=== PATIENT | female | born 1975 | race Caucasian/White ===

== ENCOUNTER → 2016-08-25 | Outpatient (CLI) | payer BC | LOC: MW.CHFP 13:50 | PROVIDERS: ATTEND Nurse Practitioner Family | DX: F32.9 Major depressive disorder, single episode, unspecified (principal) | CPT/HCPCS: 36415; 84443 ==

== ENCOUNTER 2017-08-06 10:16 | Day surgery (SDC) | payer BC ==
[~2017-08-06 10:16] MED LIST: Acetaminophen/HYDROcodone 325-5 MG Tab PO PRN; Lactated Ringers 1,000 ML IV SCH; Lidocaine 1% 20 ML MDV ONE; ceFAZolin 2 GM in Premix Bag 1 BAG IV SCH
[2017-08-06] MEDS ORDERED: Lidocaine 2% 5 ML SDV ONE (10:37)
[2017-08-06] MEDS ORDERED: Ondansetron 4 MG/2 ML SDV ONE (10:37)
[2017-08-06] MEDS ORDERED: Midazolam 1 MG/ML 2 ML SDV ONE (10:38)
[2017-08-06] MEDS ORDERED: fentaNYL 250 MCG/5 ML SDV ONE (10:38)
[2017-08-06] MEDS ORDERED: Propofol 200 MG/20 ML SDV ONE (10:38)
--- NOTE | 2017-08-06 10:57 | PCM.PREANE ---
Preanesthetic Assessment - Anesthesia/Transfusion/Family Hx Anesthesia History: Prior Anesthesia Without Reaction (for EGD) Family History of Anesthesia Reaction: No Transfusion History: No Prior Transfusion(s) - Review of Systems General: No Symptoms Pulmonary: No Symptoms Cardiovascular: No Symptoms Gastrointestinal: No Symptoms Neurological: No Symptoms Other: Reports: None - Physical Assessment NPO Status Date: 08/05/17 O2 Sat by Pulse Oximetry: 96 Respiratory Rate: 16 Vital Signs: Last Vital Signs Temp 36.1 C 08/06/17 10:35 Pulse 66 08/06/17 10:35 Resp 16 08/06/17 10:35 BP 135/68 08/06/17 10:35 Pulse Ox 96 08/06/17 10:35 Height: 1.73 m Weight: 75.75 kg ASA Class: 2 Mental Status: Alert & Oriented x3 Airway Class: Mallampati = 1 Dentition: Reports: Normal Dentition ROM/Head Extension: Full Lungs: Clear to Auscultation, Normal Respiratory Effort Cardiovascular: Regular Rate, Regular Rhythm - Allergies Allergies/Adverse Reactions: Allergies Allergy/AdvReac Type Severity Reaction Status Date / Time No Known Allergies Allergy Verified 08/02/17 08:11 - Anesthesia Plan Pre-Op Medication Ordered: None (pmh: smoker, gerd. anx/dep) - Acknowledgements Anesthesia Type Planned: General Anesthesia Pt an Appropriate Candidate for the Planned Anesthesia: Yes Alternatives and Risks of Anesthesia Discussed w Pt/Guardian: Yes Pt/Guardian Understands and Agrees with Anesthesia Plan: Yes PreAnesthesia Questionnaire Gastrointestinal History: Reports: GERD, Irritable Bowel Syndrome Genitourinary History: Reports: None Musculoskeletal History: Reports: Osteoarthritis Psychiatric History: Reports: Anxiety, Depression - Past Surgical History Head Surgeries/Procedures: Reports: None Female Surgical History: Reports: Tubal Ligation - SUBSTANCE USE Smoking Status *Q: Current Every Day Smoker Tobacco Use Within Last Twelve Months: Cigarettes Days Per Week of Alcohol Use: 7 Number of Drinks Per Day: 3 Total Drinks Per Week: 21 Recreational Drug Use History: No - HOME MEDS Home Medications: Home Meds Desvenlafaxine Succinate [Desvenlafaxine Succinate ER] 25 mg PO DAILY 08/02/17 [ History] Omeprazole 20 mg PO DAILY PRN 08/02/17 [History] Sucralfate 1 tab PO ASDIRECTED PRN 08/02/17 [History] - CURRENT (IN HOUSE) MEDS Current Meds: Current Medications Hydrocodone Bitart/Acetaminophen ([place] 325-5 Mg) 1 - 2 tab PO Q4H PRN PRN Reason: Pain Cefazolin Sodium/Dextrose 2 gm (/ Premix) 50 mls @ 100 mls/hr IV ONCALL SIMON Lactated Ringer's (Ringers, Lactated) 1,000 mls @ 100 mls/hr IV ASDIRECTED SIMON Last Admin: 08/06/17 10:42 Dose: 100 mls/hr Discontinued Medications Fentanyl (Sublimaze) Confirm Administered Dose 250 mcg .ROUTE .STK-MED ONE Stop: 08/06/17 10:39 Lidocaine (Xylocaine-Mpf 2%) Confirm Administered Dose 5 ml .ROUTE .STK-MED ONE Stop: 08/06/17 10:38 Lidocaine HCl (Xylocaine 1%) Confirm Administered Dose 20 ml .ROUTE .STK-MED ONE Stop: 08/06/17 07:31 Midazolam HCl (Versed 1 Mg/Ml) Confirm Administered Dose 2 mg .ROUTE .STK-MED ONE Stop: 08/06/17 10:39 Ondansetron HCl (Zofran) Confirm Administered Dose 4 mg .ROUTE .STK-MED ONE Stop: 08/06/17 10:38 Propofol (Diprivan 20 Ml) Confirm Administered Dose 200 mg .ROUTE .STK-MED ONE Stop: 08/06/17 10:39
[2017-08-06] MEDS ORDERED: Sodium Chloride 0.9% 20 ML ONE (12:25)
[2017-08-06] MEDS ORDERED: ceFAZolin 1 GM Vial ONE (12:25)
[2017-08-06] MEDS ORDERED: fentaNYL 100 MCG/2 ML SDV IVPUSH PRN (12:35)
[2017-08-06] MEDS ORDERED: Glycopyrrolate 0.2 MG/ML SDV ONE (12:36)
[2017-08-06] MEDS ORDERED: ePHEDrine 50 MG/ML SDV ONE (12:38)
[2017-08-06] MEDS ORDERED: Ketorolac 30 MG/ML SDV ONE (12:55)
--- NOTE | 2017-08-06 13:16 | PCM.OPNOTE ---
- General Post-Op/Procedure Note Date of Surgery/Procedure: 08/06/17 Operative Procedure(s): Left knee scope with PLM Post-Op Diagnosis: L knee DJD and L knee lateral meniscus tear Anesthesia Technique: General LMA Primary Surgeon: Bridget Mayo Contour Sander: Kelley Rivers in mLs: 5 Condition: Good Free Text/Narrative:: tt=18 min #[id number]
--- NOTE | 2017-08-06 13:20 | PCM.OPNOTE ---
- General Post-Op/Procedure Note Date of Surgery/Procedure: 08/06/17 Operative Procedure(s): left knee arthroscopy with PLM Post-Op Diagnosis: DJD left lat meniscus tear, DJD left knee Primary Surgeon: Bridget Mayo Shot Lighter: Kelley Rivers in mLs: 10 Condition: Good Free Text/Narrative:: 284
--- NOTE | 2017-08-06 13:53 | PCM48HPAN ---
Post Anesthesia Note - EVALUATION WITHIN 48HRS OF ANESTHETIC Vital Signs in Normal Range: Yes Patient Participated in Evaluation: Yes Respiratory Function Stable: Yes Airway Patent: Yes Cardiovascular Function Stable: Yes Hydration Status Stable: Yes Pain Control Satisfactory: Yes Nausea and Vomiting Control Satisfactory: Yes Mental Status Recovered: Yes Resp Rate: 13
--- NOTE | 2017-08-06 13:53 | PCM.POSTAN ---
POST ANESTHESIA ASSESSMENT - MENTAL STATUS Mental Status: Alert, Oriented - RESPIRATORY Respiratory Status: Respiratory Rate WNL, Airway Patent, O2 Saturation Stable - CARDIOVASCULAR CV Status: Pulse Rate WNL, Blood Pressure Stable - GASTROINTESTINAL GI Status: No Symptoms - POST OP HYDRATION Hydration Status: Adequate & Stable
--- NOTE | 2017-08-06 13:54 | OR ---
SURGEON: Bridget Mayo MD DATE OF PROCEDURE: 08/06/2017 PREOPERATIVE DIAGNOSIS: Left knee lateral meniscus tear. POSTOPERATIVE DIAGNOSES: 1. Left knee lateral meniscus tear. 2. Degenerative joint disease, left knee. PROCEDURE: Left knee arthroscopy with partial lateral meniscectomy. WIRE PULLER: Kelley Rivers PA-C. ANESTHESIA: General. ESTIMATED BLOOD LOSS: 10 mL. TOURNIQUET TIME: 18 minutes. COMPLICATIONS: None. DVT PROPHYLAXIS: None. IMPLANTS USED: None. BRIEF HISTORY: Nancy is a 41-year-old female, who has had complaint of persistent left knee pain. She did have an MRI, which did show a tear of the left lateral meniscus. Due to her lack of response to conservative treatment, I did recommend surgical intervention. The risks and goals of procedure were discussed with the patient and were documented preoperatively. She agreed to proceed. DESCRIPTION OF PROCEDURE: The patient was properly identified and brought to the operating room. She was transferred from the OR cart and placed on the operating table in supine position. General anesthesia was administered. After adequate anesthesia was obtained, a well-padded tourniquet was applied to the left lower extremity. Left lower extremity was then prepped in standard fashion using ChloraPrep solution. It was then sterilely draped. A time-out was performed to ensure correct site and procedure. Preoperative antibiotics were given. The surgical site had been marked preoperatively. An Esmarch was used to exsanguinate the left lower extremity and the tourniquet was inflated to 250 mmHg. A lateral portal arthrotomy was established. Blunt trocar and cannula were introduced into the suprapatellar pouch. Camera, inflow, and outflow were assembled. No significant synovitis was noted. The patellofemoral joint was visualized. Degenerative changes were noted along the undersurface of the patella. The patella appeared to track centrally. I then extended down the lateral and medial gutter. No loose bodies were identified. I then entered the medial compartment. A medial portal arthrotomy was established. A blunt probe was inserted. The meniscus appeared intact. 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 I then entered the notch. Both the ACL and PCL were visualized and probed and found to be stable. I then entered the lateral compartment. Extensive degenerative tearing of the posterior horn of the lateral meniscus was noted. This was probed and found to be unstable. Using a combination of biters and shaver, this was resected back to a stable remnant. It was again probed and found to be stable. The joint surfaces were then inspected. No obvious degenerative changes were noted along the lateral femoral condyle; however, probing did show extensive softening along the weightbearing portion of the femoral condyle as well as the posterior portion. The lateral tibial plateau showed diffuse grade 3 to grade 4 chondromalacia. I did perform a chondroplasty of the lateral tibial plateau. I then entered the patellofemoral joint again. The undersurface of the patella was inspected. Grade 3 to grade 4 chondromalacia was noted diffusely along the medial and lateral aspect of the patella. A chondroplasty was performed to resect the unstable fragments. The trochlea showed minimal degenerative findings. Instruments were then removed from the knee. The portal sites were closed with 3-0 nylon. 1% Lidocaine was injected along the portal tracts. Xeroform gauze was placed over the wound and a bulky dressing was applied. The tourniquet was then deflated. She was awakened from her anesthetic and transferred back to the operating room cart. She was brought to recovery room in stable condition. All needle and sponge counts were correct. DIA / RHONA /[id number]
[2017-08-06 14:29] VITALS: BP 128/79
== END 2017-08-06 14:13 | disposition home or self-care (01) ==
LOC: MW.SDS 10:16
PROVIDERS: ATTEND Orthopaedic Surgery
DX: M23.252 Derangement of posterior horn of lateral meniscus due to old tear or injury, left knee (principal); F41.9 Anxiety disorder, unspecified; F32.9 Major depressive disorder, single episode, unspecified; K21.9 Gastro-esophageal reflux disease without esophagitis; Z79.899 Other long term (current) drug therapy; F17.210 Nicotine dependence, cigarettes, uncomplicated
CPT/HCPCS: 29881; 81025; A9270; J0690; J1885; J2250; J2405; J3010; J7120; J2704

== ENCOUNTER 2019-05-01 02:58 | Emergency (ER) | payer BC ==
--- NOTE | 2019-05-01 03:17 | EDM.PDOC ---
ED HPI GENERAL MEDICAL PROBLEM - General Chief Complaint: Fever Stated Complaint: FEVER Time Seen by Provider: 05/01/19 03:08 Source of Information: Reports: Patient History Limitations: Reports: No Limitations - History of Present Illness INITIAL COMMENTS - FREE TEXT/NARRATIVE: This 43-year-old female presents the ER with a fever muscle aches for the past 3 days. Patient states that her family members have all been sick. Patient denies any other problems Onset: Today Duration: Day(s):, Getting Worse Location: Reports: Abdomen Severity: Mild Improves with: Reports: None Worsens with: Reports: None Associated Symptoms: Reports: No Other Symptoms, Fever/Chills - Related Data Allergies Allergy/AdvReac Type Severity Reaction Status Date / Time No Known Allergies Allergy Verified 05/01/19 03:12 Home Meds: Home Meds Penicillin V Potassium 1 tab PO Q6HR 05/01/19 [History] Past Medical History Gastrointestinal History: Reports: GERD, Irritable Bowel Syndrome Genitourinary History: Reports: None Musculoskeletal History: Reports: Osteoarthritis Psychiatric History: Reports: Anxiety, Depression - Past Surgical History Head Surgeries/Procedures: Reports: None Female Surgical History: Reports: Tubal Ligation ED ROS GENERAL - Review of Systems Review Of Systems: Comprehensive ROS is negative, except as noted in HPI. Constitutional: Reports: No Symptoms, Fever, Chills, Malaise, Weakness HEENT: Reports: No Symptoms Respiratory: Reports: No Symptoms Cardiovascular: Reports: No Symptoms Endocrine: Reports: No Symptoms GI/Abdominal: Reports: No Symptoms : Reports: No Symptoms Musculoskeletal: Reports: No Symptoms Skin: Reports: No Symptoms Neurological: Reports: No Symptoms Psychiatric: Reports: No Symptoms Hematologic/Lymphatic: Reports: No Symptoms Immunologic: Reports: No Symptoms ED EXAM, SEPSIS - Physical Exam Exam: See Below Exam Limited By: No Limitations General Appearance: Alert, WD/WN, No Apparent Distress Eye Exam: Bilateral Eye: Abnormal EOM, Abnormal Pupil, Normal Fundi, Normal Inspection Ears: Normal External Exam, Normal Canal Nose: Normal Inspection, Normal Mucosa Throat/Mouth: Normal Inspection, Normal Lips, Normal Oropharynx, Normal Voice Head: Atraumatic, Normocephalic Neck: Normal Inspection, Supple, Non-Tender Respiratory/Chest: No Respiratory Distress, Lungs Clear, Normal Breath Sounds, No Accessory Muscle Use Cardiovascular: Normal Peripheral Pulses, No JVD, No Murmur GI/Abdominal Exam: Normal Bowel Sounds, Soft, Non-Tender, No Organomegaly, No Distention Back: Normal Inspection, Full Range of Motion Neurological: Oriented, Normal Reflexes, No Motor/Sensory Deficits Psychiatric: Normal Affect, Normal Mood Skin: Warm, Intact Course - Vital Signs Last Recorded V/S: Last Vital Signs Temp 100.2 F 05/01/19 03:10 Pulse 116 H 05/01/19 03:10 Resp 18 05/01/19 03:10 BP 95/71 05/01/19 03:10 Pulse Ox 96 05/01/19 03:10 - Orders/Labs/Meds Orders: Active Orders 24 hr Category Date Time Status STREP SCRN A RAPID W CULT CONF [RM] Stat Lab 05/01/19 03:45 Ordered Departure - Departure Time of Disposition: 04:17 Disposition: Home, Self-Care 01 Condition: Good Clinical Impression: Bronchitis - Discharge Information Referrals: PCP,Not In Area [Primary Care Provider] - Forms: ED Department Discharge Sepsis Event Note - Focused Exam Vital Signs: Vital Signs Temp Pulse Resp BP Pulse Ox 05/01/19 03:10 100.2 F 116 H 18 95/71 96 - My Orders Last 24 Hours: My Active Orders 05/01/19 03:45 STREP SCRN A RAPID W CULT CONF [RM] Stat - Assessment/Plan Last 24 Hours: My Active Orders 05/01/19 03:45 STREP SCRN A RAPID W CULT CONF [RM] Stat
[2019-05-01] MEDS ORDERED: Azithromycin 250 MG Tab PO ONE (04:18)
[2019-05-01 04:30] VITALS: BP 90/52; PULSE 96
== END 2019-05-01 04:30 | disposition home or self-care (01) ==
LOC: MW.ED 02:58
DX: J40 Bronchitis, not specified as acute or chronic (principal)
CPT/HCPCS: 87081; 87804; 87880; 99283; A9270; 99282

== ENCOUNTER 2020-01-09 11:45 | Day surgery (SDC) | payer BC ==
--- NOTE | 2020-01-09 12:25 | PCM.PREANE ---
Preanesthetic Assessment - Anesthesia/Transfusion/Family Hx Anesthesia History: Prior Anesthesia Without Reaction (for EGD) Other Type of Anesthesia Reaction Comment: "I get the shakes after surgery" Family History of Anesthesia Reaction: No Transfusion History: No Prior Transfusion(s) Intubation History: Unknown - Review of Systems General: No Symptoms Pulmonary: No Symptoms Cardiovascular: No Symptoms Gastrointestinal: No Symptoms Neurological: No Symptoms Other: Reports: None - Physical Assessment Height: 5 ft 7.75 in Weight: 76.204 kg ASA Class: 2 Mental Status: Alert & Oriented x3 Airway Class: Mallampati = 2 Dentition: Reports: Normal Dentition Thyro-Mental Finger Breadths: 3 Mouth Opening Finger Breadths: 2 (small mouth) ROM/Head Extension: Full Lungs: Clear to Auscultation, Normal Respiratory Effort Cardiovascular: Regular Rate, Regular Rhythm - Allergies Allergies/Adverse Reactions: Allergies Allergy/AdvReac Type Severity Reaction Status Date / Time No Known Allergies Allergy Verified 01/06/20 11:02 - Blood Blood Available: No - Anesthesia Plan Pre-Op Medication Ordered: None - Acknowledgements Anesthesia Type Planned: General Anesthesia Pt an Appropriate Candidate for the Planned Anesthesia: Yes Alternatives and Risks of Anesthesia Discussed w Pt/Guardian: Yes Pt/Guardian Understands and Agrees with Anesthesia Plan: Yes PreAnesthesia Questionnaire HEENT History: Reports: None Cardiovascular History: Reports: None Respiratory History: Reports: None Gastrointestinal History: Reports: GERD (controlled with omeprazole) Genitourinary History: Reports: None PLATE CONDITIONER History: Reports: None Musculoskeletal History: Reports: Arthritis, Osteoarthritis Neurological History: Reports: None Psychiatric History: Reports: Anxiety, Depression Endocrine/Metabolic History: Reports: None Hematologic History: Reports: None Immunologic History: Reports: None Oncologic (Cancer) History: Reports: None Dermatologic History: Reports: None - Infectious Disease History Infectious Disease History: Reports: None - Past Surgical History Head Surgeries/Procedures: Reports: None HEENT Surgical History: Reports: None Cardiovascular Surgical History: Reports: None Respiratory Surgical History: Reports: None GI Surgical History: Reports: None Female Surgical History: Reports: Tubal Ligation (1997) Endocrine Surgical History: Reports: None Neurological Surgical History: Reports: None Musculoskeletal Surgical History: Reports: Arthroscopic Knee (left knee 2016) Oncologic Surgical History: Reports: None Dermatological Surgical History: Reports: None - SUBSTANCE USE Smoking Status *Q: Current Every Day Smoker (1/2 ppd) Tobacco Use Within Last Twelve Months: Cigarettes Days Per Week of Alcohol Use: 7 Number of Drinks Per Day: 2 Total Drinks Per Week: 14 - HOME MEDS Home Medications: Home Meds Omeprazole 20 mg PO DAILY PRN 01/06/20 [History]
[2020-01-09] MEDS ORDERED: Lactated Ringers 1,000 ML IV SCH (12:30)
[2020-01-09] MEDS ORDERED: Propofol 200 MG/20 ML SDV ONE (12:58)
[2020-01-09] MEDS ORDERED: Lidocaine 2% 5 ML SDV ONE (12:58)
[2020-01-09] MEDS ORDERED: Midazolam 1 MG/ML 2 ML SDV ONE (12:59)
[2020-01-09] MEDS ORDERED: fentaNYL 100 MCG/2 ML SDV ONE (12:59)
[2020-01-09] MEDS ORDERED: HYDROmorphone 2 MG/ML Syringe ONE (12:59)
[2020-01-09] MEDS ORDERED: Sodium Chloride 0.9% 20 ML ONE (13:01)
[2020-01-09] MEDS ORDERED: Ondansetron 4 MG/2 ML SDV ONE (13:03)
[2020-01-09] MEDS ORDERED: Ketorolac 30 MG/ML SDV ONE (13:03)
--- NOTE | 2020-01-09 14:29 | PCM.OPNOTE ---
<Jannette Landeros - Last Filed: 01/09/20 14:24> - General Post-Op/Procedure Note Date of Surgery/Procedure: 01/09/20 Operative Procedure(s): operative hysteroscopy with polypectomy, dilation & currettage, Mirena IUD insertion Findings: -endometrial polyp Pre Op Diagnosis: Abnormal uterine bleeding, suspected endometrial polyp Post-Op Diagnosis: same Anesthesia Technique: General LMA Primary Surgeon: Lucía Castro Anesthesia Provider: Lotus Mueller Surveyor Oil Well Directional: Jannette Landeros (MS4) Pathology: -endometrial curettings with possible polyp -endocervical curettings Fluid Replacement, Intraop: 800 Output, Urine Amount: 50 (straight catheter) EBL in mLs: 5 Complications: none known Condition: Good Free Text/Narrative:: -44yo female underwent operative hysteroscopy with polypectomy, D&C, and Mirena insertion -fluid deficit 105 -patient tolerated procedure well <Lucía Castro - Last Filed: 01/09/20 14:38> - General Post-Op/Procedure Note Operative Procedure(s): Operative Hysteroscopy with removal of endometrial lesion via myosure. Endometrial currettage. Insertion of Mirena IUD Free Text/Narrative:: Intake & Output 01/08/20 01/09/20 01/09/20 22:59 06:59 14:59 Intake Total 800 Output Total 50 Balance 750 Examination under anaesthesia shows 10 week sized globular uterus . Uterus sounded to 10cm
[2020-01-09] MEDS ORDERED: Promethazine 25 MG/ML SDV IM PRN (14:40)
[2020-01-09] MEDS ORDERED: Acetaminophen/oxyCODONE 325-5 MG Tab PO PRN ×2 (14:40)
[2020-01-09] MEDS ORDERED: Ondansetron 4 MG/2 ML SDV IVPUSH PRN (14:40)
[2020-01-09] MEDS ORDERED: Morphine 4 MG/ML Syringe IVPUSH PRN (14:40)
[2020-01-09] MEDS ORDERED: Ketorolac 30 MG/ML SDV IVPUSH ONE (14:40)
--- NOTE | 2020-01-09 14:53 | PCM.POSTAN ---
POST ANESTHESIA ASSESSMENT - MENTAL STATUS Mental Status: Alert, Oriented - VITAL SIGNS Vital Signs: Last Vital Signs Temp 36.9 C 01/09/20 14:20 Pulse 62 01/09/20 14:45 Resp 11 L 01/09/20 14:45 BP 136/84 01/09/20 14:45 Pulse Ox 93 L 01/09/20 14:45 - RESPIRATORY Respiratory Status: Respiratory Rate WNL, Airway Patent, O2 Saturation Stable - CARDIOVASCULAR CV Status: Pulse Rate WNL, Blood Pressure Stable - GASTROINTESTINAL GI Status: No Symptoms - PAIN Pain Score: 1 - POST OP HYDRATION Hydration Status: Adequate & Stable - OBSERVATIONS Free Text/Narrative:: Sitting up conversing in bed, reports good pain control, taking PO well and denies nausea.
[2020-01-09 16:33] VITALS: BP 122/86; PULSE 66
--- NOTE | 2020-01-09 16:43 | PCM48HPAN ---
Post Anesthesia Note - EVALUATION WITHIN 48HRS OF ANESTHETIC Vital Signs in Normal Range: Yes Patient Participated in Evaluation: Yes Respiratory Function Stable: Yes Airway Patent: Yes Cardiovascular Function Stable: Yes Hydration Status Stable: Yes Pain Control Satisfactory: Yes Nausea and Vomiting Control Satisfactory: Yes Mental Status Recovered: Yes Vital Signs: Last Vital Signs Temp 36.1 C 01/09/20 14:55 Pulse 66 01/09/20 15:55 Resp 16 01/09/20 15:55 BP 122/86 01/09/20 15:55 Pulse Ox 96 01/09/20 15:55 - COMMENTS/OBSERVATIONS Free Text/Narrative:: Late entry, pt assessed at 1600. Pt remains mild to moderately nauseated, and states she is "dizzy," but insisting on discharge. Asked to differentiate between lightheadedness and dizziness, pt states "just nauseous." VSS, able to stand and walk without difficulty or lightheadedness at this time. Instructed to report back to ED if nausea is not relieved by this evening.
--- NOTE | 2020-01-09 19:19 | OR ---
SURGEON: JACQUE BERMUDEZ DATE OF PROCEDURE: 01/09/2020 PREOPERATIVE DIAGNOSIS: A 44-year-old para 3 with abnormal uterine bleeding, ultrasound suggestive of endometrial polyp. POSTOPERATIVE DIAGNOSIS: Abnormal uterine bleeding secondary to an endometrial lesion. PROCEDURE: Operative hysteroscopy with removal of endometrial lesion with MyoSure, Endometrial curettage, Insertion of Mirena IUD. ESTIMATED BLOOD LOSS: 5 mL. IV FLUIDS: 800 of LR. FLUID DEFICIT: 150. ANESTHESIA: General. COMPLICATIONS: None. NOTES AND FINDINGS: Examination under anesthesia showed a 10-week sized globular uterus. No adnexal masses felt. Hysteroscopy showed a 1.1 cm whitish fibroid-appearing lesion noted in the mid endometrial cavity. BRIEF HISTORY ABOUT THE PATIENT: She is a patient, 44-year-old, para 3, previous , who was seen in the clinic complaining of abnormal uterine bleeding. She was having menorrhagia, intermenstrual bleeding for about a year. She had an ultrasound done which showed a 1.1 cm echogenic area within the endometrium. She also had a workup done and as a result she was given the option of an operative hysteroscopy, which she agreed to. She was explained the risks, benefits, and alternatives, and she desired to proceed. DESCRIPTION OF PROCEDURE: The patient was taken to the operating room where general anesthesia was performed without difficulty. She was prepared and draped in the dorsal lithotomy position with Jasen stirrups. The perineum was prepped and draped in the normal sterile fashion. The bivalve speculum was placed to expose the cervix. The cervix was then prepped with some Betadine again after the initial prep. The anterior lip of the cervix was grasped with the Allis clamp. The uterus was sounded to 10 cm. Then, it was gradually dilated to accommodate the 10 mm MyoSure hysteroscope. The MyoSure hysteroscope was then inserted via the cervix into the uterus. The lesion was noted. The MyoSure was then inserted and with direct visualization was removed from the endometrial cavity. The MyoSure was then withdrawn. Then, an endocervical curetting was obtained. Then, an endometrial curetting was obtained on all four dickey; the anterior, posterior, right, and lateral dickey of the endometrial cavity. After this was done, the uterus was again sounded to 10 cm The Mirena was then inserted into the uterine cavity without any difficulty. The string was cut. The Allis was removed. Speculum was removed. All instrument and pad counts were correct x2. The patient tolerated the procedure well and was taken to recovery room in stable condition. LAWRENCE MELGOZA /[id number] MTDD
[2020-01-09] MEDS ORDERED: Ketorolac 30 MG/ML SDV IVPUSH PRN (20:40)
== END 2020-01-09 16:00 | disposition home or self-care (01) ==
LOC: MW.SDS 11:45
PROVIDERS: ATTEND Obstetrics & Gynecology
DX: N84.0 Polyp of corpus uteri (principal); F41.9 Anxiety disorder, unspecified; F32.9 Major depressive disorder, single episode, unspecified; K21.9 Gastro-esophageal reflux disease without esophagitis; F17.210 Nicotine dependence, cigarettes, uncomplicated; Z79.899 Other long term (current) drug therapy
CPT/HCPCS: 58300; 58563; 88305; J1170; J2001; J2250; J2704; J3010; J7120; 00952; J1885; J2405

== ENCOUNTER 2020-03-23 11:33 | Inpatient (IN) | payer BC ==
[2020-03-23] MEDS ORDERED: Potassium Chloride 20 MEQ Tab.ER PO ONE (14:22)
[2020-03-23] MEDS ORDERED: Omeprazole 20 MG Cap.CR PO PRN (14:22)
--- NOTE | 2020-03-23 14:46 | PCM.HP.2 ---
H&P History of Present Illness - General Date of Service: 03/23/20 Admit Problem/Dx: Admission Diagnosis/Problem Admission Diagnosis/Problem Alcohol withdrawal syndrome - History of Present Illness Initial Comments - Free Text/Narative: 44 yo female with pmh of ETOH abuse and GERD who presents to Dr. Hutchins's clinic today requesting help with quiting alcohol. Patient reports drinking a pint a day for past five years. She denies any history of DTs but does report feeling shaking and requiring a drink when she wakes up in the morning. Patient's last drink was yesterday. Dr. Hutchins referred for admission for ETOH detox. - Related Data Allergies/Adverse Reactions: Allergies Allergy/AdvReac Type Severity Reaction Status Date / Time No Known Allergies Allergy Verified 01/06/20 11:02 Home Medications: Home Meds Omeprazole 20 mg PO DAILY PRN 01/06/20 [History] Past Medical History - Past Health History Medical/Surgical History: Denies Medical/Surgical History HEENT History: Reports: None Cardiovascular History: Reports: None Respiratory History: Reports: None Gastrointestinal History: Reports: GERD Genitourinary History: Reports: None SQE History: Reports: Polycystic Ovaries Musculoskeletal History: Reports: Arthritis, Osteoarthritis Neurological History: Reports: None Psychiatric History: Reports: Anxiety, Depression Endocrine/Metabolic History: Reports: None Insulin Pump Model and Room Service Server: None Hematologic History: Reports: None Immunologic History: Reports: None Oncologic (Cancer) History: Reports: None Dermatologic History: Reports: None - Infectious Disease History Infectious Disease History: Reports: None - Past Surgical History Head Surgeries/Procedures: Reports: None HEENT Surgical History: Reports: None Cardiovascular Surgical History: Reports: None Respiratory Surgical History: Reports: None GI Surgical History: Reports: None Female Surgical History: Reports: Tubal Ligation Other Female Surgeries/Procedures: polyps removed from ovaries and IUD insertion Endocrine Surgical History: Reports: None Neurological Surgical History: Reports: None Musculoskeletal Surgical History: Reports: Arthroscopic Knee Oncologic Surgical History: Reports: None Dermatological Surgical History: Reports: None Social & Family History - Family History Family Medical History: No Pertinent Family History - Tobacco Use Tobacco Use Status *Q: Current Every Day Tobacco User Years of Tobacco use: 30 Packs/Tins Daily: 0.5 - Caffeine Use Caffeine Use: Reports: None - Alcohol Use Days Per Week of Alcohol Use: 7 Number of Drinks Per Day: 0 Total Drinks Per Week: 0 Date of Last Drink: 03/22/20 Time of Last Drink: 21:00 - Recreational Drug Use Recreational Drug Use: No H&P Review of Systems - Review of Systems: Review Of Systems: Comprehensive ROS is negative, except as noted in HPI. Exam - Exam Exam: See Below - Vital Signs Vital Signs: Last Vital Signs Temp 35.8 C L 03/23/20 11:36 Pulse 93 03/23/20 11:36 Resp 20 03/23/20 11:36 BP 141/95 H 03/23/20 11:36 Pulse Ox 96 03/23/20 11:36 Weight: 77.111 kg - Exam General: Alert, Oriented HEENT: Mucosa Moist & [place] Neck: Supple Lungs: Clear to Auscultation, Normal Respiratory Effort Cardiovascular: Regular Rate, Regular Rhythm GI/Abdominal Exam: Normal Bowel Sounds, Soft, Non-Tender Extremities: Non-Tender, No Pedal Edema Skin: Warm, Dry, Intact - Patient Data Lab Results Last 24 hrs: Laboratory Results - last 24 hr 03/23/20 Range/Units 09:43 Magnesium 1.6 L (1.8-2.4) mg/dL Sepsis Event Note - Evaluation Sepsis Screening Result: No Definite Risk - Focused Exam Vital Signs: Vital Signs Temp Pulse Resp BP Pulse Ox 03/23/20 11:36 35.8 C L 93 20 141/95 H 96 Problem List Initiated/Reviewed/Updated: Yes Orders Last 24hrs: Active Orders 24 hr Category Date Time Status Patient Status [ADT] Routine ADT 03/23/20 14:40 Ordered Antiembolic Devices [RC] PER UNIT ROUTINE Care 03/23/20 14:42 Ordered Oxygen Therapy [RC] PRN Care 03/23/20 14:40 Ordered Up ad Sadia [RC] ASDIRECTED Care 03/23/20 14:40 Ordered VTE/DVT Education [RC] PER UNIT ROUTINE Care 03/23/20 14:40 Ordered Vital Signs [RC] Q4H Care 03/23/20 14:40 Ordered Regular Diet [DIET] Diet 03/23/20 Breakfast Ordered CBC WITH AUTO DIFF [HEME] AM Lab 03/24/20 05:11 Ordered COMPREHENSIVE METABOLIC PN,CMP [CHEM] AM Lab 03/24/20 05:11 Ordered Folic Acid Med 03/23/20 14:30 Active 1 mg PO DAILY LORazepam [Ativan] Med 03/23/20 14:18 Active See Protocol IVPUSH Q4H PRN Nicotine [Habitrol] Med 03/23/20 14:45 Ordered 14 mg TRDERM DAILY Omeprazole Med 03/23/20 14:22 Active 20 mg PO DAILY PRN Thiamine [Vitamin B-1] Med 03/23/20 14:30 Active 100 mg IVPUSH DAILY Sequential Compression Device [OM.PC] Per Unit Routine Oth 03/23/20 14:41 Ordered Resuscitation Status Routine Resus Stat 03/23/20 14:40 Ordered Medication Orders Folic Acid (Folic Acid) 1 mg PO DAILY SIMON Lorazepam (Ativan) 0 mg IVPUSH Q4H PRN; Protocol PRN Reason: CIWAA Nicotine (Habitrol) 14 mg TRDERM DAILY SIMON Omeprazole (Omeprazole) 20 mg PO DAILY PRN PRN Reason: Heartburn Thiamine HCl (Vitamin B-1) 100 mg IVPUSH DAILY SIMON Assessment/Plan Comment:: 44 yo female admitted for ETOH detox. We will place patient on CIWAA protocol with prn ativan. We will also give thiamin and folic acid.
[2020-03-23] MEDS: Thiamine 200 MG/2 ML MDV IVPUSH SCH (14:49)
[2020-03-23] MEDS: Folic Acid 1 MG Tab PO SCH (14:49)
[2020-03-23] MEDS: Nicotine 14 MG/24 Hr Patch TRDERM SCH (14:50)
[2020-03-23] MEDS: LORazepam 2 MG/ML SDV IVPUSH PRN (15:38)
[2020-03-23] MEDS ORDERED: Magnesium Sulfate/Water 2 GM/50 ML BAG IV ONE (16:14)
[2020-03-24] MEDS: LORazepam 2 MG/ML SDV IVPUSH PRN (00:40)
[2020-03-24 07:21] LABS: BLOOD UREA NITROGEN,BUN 4 mg/dL (7.0-18.0); CARBON DIOXIDE,CO2 23.7 mmol/L (21.0-32.0); CHLORIDE,CL 106 mmol/L (98-107); GLUCOSE RANDOM 107 mg/dL (74-106); POTASSIUM,K 3.2 mmol/L (3.5-5.1); SODIUM,NA 138 mmol/L (136-145)
[2020-03-24] MEDS ORDERED: Potassium Chloride 20 MEQ Tab.ER PO ONE (08:10)
[2020-03-24] MEDS: Folic Acid 1 MG Tab PO SCH (09:04)
[2020-03-24] MEDS: Nicotine 14 MG/24 Hr Patch TRDERM SCH (09:04)
[2020-03-24] MEDS: Thiamine 200 MG/2 ML MDV IVPUSH SCH (09:06)
[2020-03-24 11:29] VITALS: BP 116/80; PULSE 87
--- NOTE | 2020-03-24 16:00 | PCM.DCSUM1 ---
Discharge Summary - Hospital Course Brief History: 44 yo female with pmh of ETOH abuse and GERD who presents to Dr. Hutchins's clinic today requesting help with quiting alcohol. Patient reports drinking a pint a day for past five years. She denies any history of DTs but does report feeling shaking and requiring a drink when she wakes up in the morning. Patient's last drink was yesterday. Dr. Hutchins referred for admission for ETOH detox. Diagnosis: Stroke: No - Discharge Data Discharge Date: 03/24/20 Discharge Disposition: Home, Self-Care 01 Condition: Good - Referral to Home Health Primary Care Physician: Prashant Hutchins MD - Patient Summary/Data Hospital Course: Admission diagnoses Alcohol withdrawal Hypokalemia Hypomagnesemia Discharge diagnoses Alcohol withdrawalstable Nancy was admitted secondary to wanting detox from alcohol. Her last drink was 03/22 2020 in the evening. She reports at home she gets very anxious and tremulous when not drinking alcohol. She was directly admitted from the clinic. Overnight her CIWA scores have been 7-8 and needed only Ativan twice. She is requesting discharge today as she is feeling better and feels as though she can manage this at home. We will have her arrange close follow-up with PCP on Sunday. I did give her 2 tabs 0.5 Ativan to help with anxiety at bedtime. She is to take this as needed and continue to stay away from alcohol. She has support through her and daughter at home. We will also give AA meetings as well as [facility] services contact to help with outpatient rehabilitation. She is to return to the ER or clinic if concerns should arise. Follow-up was arranged with Dr. Guillen on Sunday. - Patient Instructions Diet: Regular Diet as Tolerated Activity: As Tolerated, Rest and Relax Today Driving: Do Not Drive Showering/Bathing: May Shower Notify Provider of: Fever, Increased Pain, Swelling and Redness, Drainage, Nausea and/or Vomiting Other/Special Instructions: provide AA meetings and human services number for outpatient rehab - Discharge Plan *PRESCRIPTION DRUG MONITORING PROGRAM REVIEWED*: Not Applicable *COPY OF PRESCRIPTION DRUG MONITORING REPORT IN PATIENT TREMAINE: Not Applicable Prescriptions/Med Rec: LORazepam [Ativan] 0.5 mg PO BEDTIME PRN #2 tablet PRN Reason: Anxiety Home Medications: Home Meds Omeprazole 20 mg PO DAILY PRN 01/06/20 [History] LORazepam [Ativan] 0.5 mg PO BEDTIME PRN #2 tablet 03/24/20 [Rx] Patient Handouts: Alcohol Use Disorder, Alcohol Intoxication, [id number], Lorazepam tablets Referrals: Prashant Hutchins MD [Primary Care Provider] - 03/26/20 8:00 am (Please arrive 15mins early and Please bring ID, insurance info and own mask on appointment) - Discharge Summary/Plan Comment DC Time >30 min.: No - Patient Data Vitals - Most Recent: Last Vital Signs Temp 98.3 F 03/24/20 11:27 Pulse 87 03/24/20 11:27 Resp 16 03/24/20 11:27 BP 116/80 03/24/20 11:27 Pulse Ox 96 03/24/20 11:27 Weight - Most Recent: 77.111 kg I&O - Last 24 hours: Intake & Output 03/24/20 03/24/20 03/24/20 06:59 14:59 22:59 Intake Total 1000 Output Total 1000 Balance 0 Lab Results - Last 24 hrs: Laboratory Results - last 24 hr 03/24/20 03/24/20 03/24/20 Range/Units 06:33 06:33 07:55 WBC 6.01 (4.0-11.0) K/uL RBC 3.49 L (4.30-5.90) M/uL Hgb 12.6 (12.0-16.0) g/dL Hct 37.3 (36.0-46.0) % MCV 106.9 H (80.0-98.0) fL MCH 36.1 H (27.0-32.0) pg MCHC 33.8 (31.0-37.0) g/dL RDW Std Deviation 49.8 (28.0-62.0) fl RDW Coeff of Fabian 13 (11.0-15.0) % Plt Count 206 (150-400) K/uL MPV 9.50 (7.40-12.00) fL Neut % (Auto) 58.0 (48.0-80.0) % Lymph % (Auto) 29.5 (16.0-40.0) % [place] % (Auto) 10.0 (0.0-15.0) % Eos % (Auto) 2.3 (0.0-7.0) % Baso % (Auto) 0.2 (0.0-1.5) % Neut # (Auto) 3.5 (1.4-5.7) K/uL Lymph # (Auto) 1.8 (0.6-2.4) K/uL [place]cock # (Auto) 0.6 (0.0-0.8) K/uL Eos # (Auto) 0.1 (0.0-0.7) K/uL Baso # (Auto) 0.0 (0.0-0.1) K/uL Nucleated RBC % 0.0 /100WBC Nucleated RBCs # 0 K/uL Sodium 138 (136-145) mmol/L Potassium 3.2 L (3.5-5.1) mmol/L Chloride 106 (98-107) mmol/L Carbon Dioxide 23.7 (21.0-32.0) mmol/L BUN 4 L (7.0-18.0) mg/dL Creatinine 0.8 (0.6-1.0) mg/dL Est Cr Clr Drug Dosing 88.64 mL/min Estimated GFR (MDRD) > 60.0 ml/min Glucose 107 H (74-106) mg/dL Calcium 7.6 L (8.5-10.1) mg/dL Magnesium 2.2 (1.8-2.4) mg/dL Total Bilirubin 0.6 (0.2-1.0) mg/dL AST 30 (15-37) IU/L ALT 21 (14-63) IU/L Alkaline Phosphatase 77 (46-116) U/L Total Protein 6.2 L (6.4-8.2) g/dL Albumin 2.8 L (3.4-5.0) g/dL Globulin 3.4 (2.6-4.0) g/dL Albumin/Globulin Ratio 0.8 L (0.9-1.6) SARS-CoV-2 RNA (THEO) NEGATIVE (NEGATIVE) Med Orders - Current: Current Medications Discontinued Medications Folic Acid (Folic Acid) 1 mg PO DAILY SIMON Last Admin: 03/24/20 09:04 Dose: 1 mg Documented by: Magnesium Sulfate (Magnesium Sulfate In Water Premix) 2 gm in 50 mls @ 50 mls/hr IV ONETIME ONE Stop: 12/01/20 17:13 Last Admin: 03/23/20 17:14 Dose: 50 mls/hr Documented by: Thiamine HCl 100 mg/ Sodium (Chloride) 101 mls @ 202 mls/hr IV DAILY [facility] Lorazepam (Ativan) 0 mg IVPUSH Q4H PRN; Protocol PRN Reason: CIWAA Last Admin: 03/24/20 00:40 Dose: 1 mg Documented by: Nicotine (Habitrol) 14 mg TRDERM DAILY [facility] Last Admin: 03/24/20 09:04 Dose: 14 mg Documented by: Omeprazole (Omeprazole) 20 mg PO DAILY PRN PRN Reason: Heartburn Last Admin: 03/23/20 14:49 Dose: 20 mg Documented by: Potassium Chloride (Klor-Con M20) 40 meq PO ONETIME ONE Stop: 03/23/20 14:23 Last Admin: 03/23/20 14:49 Dose: 40 meq Documented by: Potassium Chloride (Klor-Con M20) 40 meq PO ONETIME ONE Stop: 03/24/20 08:11 Last Admin: 03/24/20 09:04 Dose: 40 meq Documented by: Thiamine HCl (Vitamin B-1) 100 mg IVPUSH DAILY [facility] Last Admin: 03/24/20 09:06 Dose: 100 mg Documented by: - Exam General: Reports: Alert, Oriented, Cooperative, No Acute Distress Lungs: Reports: Clear to Auscultation, Normal Respiratory Effort Cardiovascular: Reports: Regular Rate, Regular Rhythm GI/Abdominal Exam: Normal Bowel Sounds, Soft, Non-Tender Skin: Reports: Warm, Dry Neurological: Reports: No New Focal Deficit Psy/Mental Status: Reports: Alert, Normal Affect, Normal Mood, Anxious (mild noted). Denies: Withdrawal Symptoms
[2020-03-25] MEDS ORDERED: Thiamine 100 MG in Sodium Chloride 0.9% 100 ML IV SCH (09:00)
== END 2020-03-24 13:54 | disposition home or self-care (01) | DRG 775 ==
LOC: MW.MS 11:33
PROVIDERS: ADMIT Internal Medicine; ATTEND Internal Medicine
DX: F10.139 Alcohol abuse with withdrawal, unspecified (principal); K21.9 Gastro-esophageal reflux disease without esophagitis; E87.6 Hypokalemia; E83.42 Hypomagnesemia; M19.90 Unspecified osteoarthritis, unspecified site; F32.9 Major depressive disorder, single episode, unspecified; F41.9 Anxiety disorder, unspecified; Z98.51 Tubal ligation status; Z20.828 Contact with and (suspected) exposure to other viral communicable diseases
CPT/HCPCS: 36415; 80053; 83735; 85025; A9270-GY; J2060; J3411; J3475; U0002

== ENCOUNTER 2023-05-15 07:05 | Emergency (ER) | payer BC ==
[2023-05-15 07:40] VITALS: BP 129/94
[2023-05-15 09:53] VITALS: PULSE 85
== END 2023-05-15 09:53 | disposition home or self-care (01) ==
LOC: MW.ED 07:05
DX: R19.7 Diarrhea, unspecified (principal)
CPT/HCPCS: 87324; 99284

== ENCOUNTER 2023-07-05 12:23 | Day surgery (SDC) | payer BC ==
[~2023-07-05 12:23] MED LIST changes: -Acetaminophen/HYDROcodone 325-5 MG Tab PO PRN; -Lactated Ringers 1,000 ML IV SCH; -Lidocaine 1% 20 ML MDV ONE; +Sodium Chloride 0.9% 10 ML Syringe FLUSH PRN; +Sodium Chloride 0.9% 2.5 ML Syringe FLUSH PRN; +Sodium Chloride 0.9% 20 ML SDV IV PRN; -ceFAZolin 2 GM in Premix Bag 1 BAG IV SCH
[2023-07-05] MEDS: Lactated Ringers 1,000 ML IV SCH (13:20)
[2023-07-05] MEDS ORDERED: propofoL 50 ML ONE (14:03)
[2023-07-05] MEDS ORDERED: fentaNYL 100 MCG/2 ML SDV ONE (14:16)
[2023-07-05] MEDS ORDERED: Propofol 200 MG/20 ML SDV ONE (14:20)
[2023-07-05 16:07] VITALS: BP 102/67; PULSE 68
== END 2023-07-05 15:05 | disposition home or self-care (01) ==
LOC: MW.SDS 12:23
PROVIDERS: ATTEND Surgery
DX: R19.7 Diarrhea, unspecified (principal); E78.5 Hyperlipidemia, unspecified; E87.6 Hypokalemia; G47.00 Insomnia, unspecified; N92.0 Excessive and frequent menstruation with regular cycle; D75.89 Other specified diseases of blood and blood-forming organs; F41.8 Other specified anxiety disorders; F17.200 Nicotine dependence, unspecified, uncomplicated; F32.A Depression, unspecified; E55.9 Vitamin D deficiency, unspecified; Z79.899 Other long term (current) drug therapy; Z86.19 Personal history of other infectious and parasitic diseases
CPT/HCPCS: 45380; J2704; J3010; J7120; 00811